=== PATIENT | male | born 1960 | race Caucasian/White ===

== ENCOUNTER → 2020-10-21 07:55 | Outpatient (CLI) | payer BC, SELFPAY ==
[2020-10-21 19:23] LABS: SARS-CoV-2 RNA PCR Negative
== END ==
PROVIDERS: PCP Family Medicine; Visit Provider Internal Medicine Gastroenterology
DX: Z01.812 Encounter for preprocedural laboratory examination (principal); Z20.822 Contact with and (suspected) exposure to COVID-19
CPT/HCPCS: C9803; U0003; U0005

== ENCOUNTER 2020-10-24 00:14 | Day surgery (SDC) | payer BC, SELFPAY ==
[2020-10-12 13:47] VITALS: BMI 33.2
--- NOTE | 2020-10-24 09:08 | WPDANESEPPF ---
Anes - Initial Pre Proc Eval Procedure: Operation Date: 10/24/20 09:30 Proposed Procedures p Screening Colonoscopy - Rob Daigle MD s Esophagogastroduodenoscopy - Rob Daigle MD Date/Time: 10/24/20 09:08 Surgeon: Rob Daigle MD Pre Op Diagnosis: neoplasm screening, dysphagia and gerd Patient Data Age: 60 Gender: M Height: 5 ft 9 in Weight: 102 kg Allergies Allergy/AdvReac Type Severity Reaction Status Date / Time No Known Allergies Allergy Verified 10/12/20 14:00 Home Medications Medication Instructions Recorded Confirmed Type nabumetone 500 mg tablet 500 mg PO BID 04/21/19 10/12/20 History Patient hx anesthesia problems: none Family hx anesthesia problems: none PMFSH Past Medical History Medical History IFG (impaired fasting glucose) Obesity Surgical History Surgical History History of cholecystectomy History of fundoplication History of repair of hiatal hernia History of tonsillectomy Family History Family History Father Family history of diabetes mellitus in first degree relative Family history of coronary artery disease Mother Family history of coronary artery disease Social History Social History Smoking status: Never smoker Second hand tobacco smoke exposure: No Alcohol intake: never Substance use: never Substance use type: does not use Living arrangements: with family Gender identity (if verbalized by the patient): Male Spiritual care concerns: No Anes - Eval Final PreProcedure Day of Procedure 10/24/20 09:08 Patient weight: obese Heart: regular rate and rhythm Lungs: clear to auscultation Airway: Mallampati scale class II Last oral intake: >/= 8 hours ASA classification: II Emergent: no Anesthetic plan: proceed Anesthesia type and monitoring: general GIVS and standard monitoring Informed Consent: The patient's anesthetic plan and its attendant risks and benefits were discussed with the patient/family/POA. Questions were solicited and answers provided to the satisfaction of the patient/family/POA.
[2020-10-24] MEDS: LACTATED RINGERS 1,000 ML 150 ML IV CONT (09:12)
[2020-10-24 09:16] VITALS: BP 141/93; PULSE 77; RESP 18; TEMP 36.4; O2SAT 95; BMI 32.7
--- NOTE | 2020-10-24 09:39 | PM.HPGS ---
History of Present Illness History of Present Illness Consent: Risks, benefits, and alternatives have been discussed and questions answered. Patient agrees to proceed with procedure. Chief complaint: neoplasm screening, dysphagia and gerd Narrative: Asa Tillman is a 60 year old male with a long history of acid reflux disease. He in fact has had anti-reflux surgery about 12 years ago. He denies dysphagia. It has been 10 years since his last colonoscopy [facility] Past Medical History Medical History IFG (impaired fasting glucose) Obesity Surgical History Surgical History History of cholecystectomy History of fundoplication History of repair of hiatal hernia History of tonsillectomy Family History Family History Father Family history of diabetes mellitus in first degree relative Family history of coronary artery disease Mother Family history of coronary artery disease Social History Social History Smoking status: Never smoker Second hand tobacco smoke exposure: No Alcohol intake: never Substance use: never Substance use type: does not use Living arrangements: with family Gender identity (if verbalized by the patient): Male Spiritual care concerns: No Meds Home Medications and Allergies Home Medications Medication Instructions Recorded Confirmed Type nabumetone 500 mg tablet 500 mg PO BID 04/21/19 10/24/20 History Allergies Allergy/AdvReac Type Severity Reaction Status Date / Time No Known Allergies Allergy Verified 10/24/20 09:14 Vital Signs Vital Signs - 24 hr 10/24/20 09:16 Temperature 36.4 C L Pulse Rate 77 Respiratory Rate 18 Blood Pressure 141/93 H Pulse Oximetry 95 Exam Resp: Auscultation: clear to auscultation bilaterally Cardio: Rate: regular rate Rhythm: regular rhythm GI: GI Palp: Yes Soft to palpation and No Tenderness to palpation present (GI) Assessment and Plan Assessment and plan (1) GERD (gastroesophageal reflux disease): Code(s): K21.9 - Gastro-esophageal reflux disease without esophagitis Status: Chronic Assessment and Plan: EGD with possible biopsy or dilatation or cautery. (2) Colon cancer screening: Code(s): Z12.11 - Encounter for screening for malignant neoplasm of colon Status: Acute Assessment and Plan: Colonoscopy with possible biopsy or polypectomy or cautery or injection of substances.
[2020-10-24] MEDS: SIMETHICONE ORAL SUSPENSION 20 MG/0.3 ML 30 ML BOTTLE 0.6 ML IRRIGATION (10:03)
[2020-10-24 10:12] VITALS: BP 96/65; PULSE 77; RESP 19; O2SAT 93
[2020-10-24 10:22] VITALS: BP 110/76; PULSE 77; RESP 19; O2SAT 94
[2020-10-24 10:32] VITALS: BP 126/89; PULSE 69; RESP 21; O2SAT 97
== END 2020-10-24 11:00 | disposition home or self-care (01) ==
PROVIDERS: PCP Family Medicine; Visit Provider Internal Medicine Gastroenterology
PROC: 0DJD8ZZ Inspection of Lower Intestinal Tract, Via Natural or Artificial Opening Endoscopic (ICD-10-PCS; CPT 45378; principal; 2020-10-24 09:30)
PROC: 0DJ08ZZ Inspection of Upper Intestinal Tract, Via Natural or Artificial Opening Endoscopic (ICD-10-PCS; CPT 43235; 2020-10-24 09:30)
DX: Z12.11 Encounter for screening for malignant neoplasm of colon (principal); D12.5 Benign neoplasm of sigmoid colon; K21.00 Gastro-esophageal reflux disease with esophagitis, without bleeding; K25.3 Acute gastric ulcer without hemorrhage or perforation; K29.50 Unspecified chronic gastritis without bleeding; Z90.49 Acquired absence of other specified parts of digestive tract
CPT/HCPCS: 45385; 43239; 87081; 88305; J2001; J2704; J7120

== ENCOUNTER → 2021-03-14 02:44 | Outpatient (CLI) | payer BC, SELFPAY ==
[2021-03-14 16:22] LABS: SARS-CoV-2 RNA PCR Negative
== END ==
PROVIDERS: PCP Family Medicine; Visit Provider Internal Medicine Gastroenterology
DX: Z01.812 Encounter for preprocedural laboratory examination (principal); Z20.822 Contact with and (suspected) exposure to COVID-19
CPT/HCPCS: C9803; U0003; U0005

== ENCOUNTER 2021-03-17 00:25 | Day surgery (SDC) | payer BC, SELFPAY ==
[2021-03-01 13:26] VITALS: BMI 34.2
[2021-03-17] MEDS: LACTATED RINGERS 1,000 ML 150 ML IV CONT (06:51)
[2021-03-17 06:53] VITALS: BP 130/88; PULSE 68; RESP 18; TEMP 36.4; O2SAT 95
--- NOTE | 2021-03-17 07:20 | WPDANESEPPF ---
Anes - Initial Pre Proc Eval Procedure: Operation Date: 03/17/21 08:00 Proposed Procedures p Esophagogastroduodenoscopy - Rob Daigle MD Date/Time: 03/17/21 07:20 Surgeon: Rob Daigle MD Pre Op Diagnosis: dysphagia Patient Data Age: 60 Gender: M Height: 1.75 m Weight: 106.5 kg Last Vital Signs Temp 36.4 C 03/17/21 06:53 Pulse 68 03/17/21 06:53 Resp 18 03/17/21 06:53 BP 130/88 03/17/21 06:53 Pulse Ox 95 03/17/21 06:53 Allergies Allergy/AdvReac Type Severity Reaction Status Date / Time No Known Allergies Allergy Verified 03/17/21 06:51 Home Medications Medication Instructions Recorded Confirmed Type nabumetone 500 mg tablet 500 mg PO BID 04/21/19 03/17/21 History omeprazole 40 mg capsule,delayed 40 mg PO DAILY #30 cap 03/01/21 03/17/21 Rx release Patient hx anesthesia problems: none Family hx anesthesia problems: none Results Review: All pre-operative results and documents have been reviewed as part of the pre-operative evaluation. [facility] Past Medical History Medical History IFG (impaired fasting glucose) Obesity Surgical History Surgical History History of cholecystectomy History of fundoplication History of repair of hiatal hernia History of tonsillectomy Family History Family History Father Family history of diabetes mellitus in first degree relative Family history of coronary artery disease Mother Family history of coronary artery disease Social History Social History Smoking status: Never smoker Second hand tobacco smoke exposure: No Alcohol intake: never Substance use: current Substance use type: does not use Gender identity (if verbalized by the patient): Male Spiritual care concerns: No Anes - Eval Final PreProcedure Day of Procedure 03/17/21 07:20 Patient weight: obese Heart: regular rate and rhythm Lungs: clear to auscultation Airway: Mallampati scale class II Neurological: alert and oriented Last oral intake: >/= 8 hours ASA classification: II Emergent: no Anesthetic plan: proceed Anesthesia type and monitoring: general GIVS and standard monitoring Results Review: All pre-operative results and documents have been reviewed as part of the pre-operative evaluation. Informed Consent: The patient's anesthetic plan and its attendant risks and benefits were discussed with the patient/family/POA. Questions were solicited and answers provided to the satisfaction of the patient/family/POA.
--- NOTE | 2021-03-17 07:24 | PM.HPGS ---
History of Present Illness History of Present Illness Consent: Risks, benefits, and alternatives have been discussed and questions answered. Patient agrees to proceed with procedure. Chief complaint: dysphagia Narrative: Asa Tillman is a 60 year old male Who have chronic acid reflux disease. He in fact had a fundoplication over 20 years ago but over the last few years has had more more issues. Three months ago I performed EGD and found severe erosive esophagitis in the distal few cm along with a mild stricture, which was not dilated because of the marked inflammation and risk of bleeding. He now is feeling much better, having been taking omeprazole 40 mg daily. Occasionally he will have some discomfort or slow transit when swallowing. Repeat EGD today is to confirm healing and if necessary perform dilatation Review of Systems Review of Systems: All systems reviewed & are unremarkable except as noted in HPI and below PMFSH Past Medical History Medical History IFG (impaired fasting glucose) Obesity Surgical History Surgical History History of cholecystectomy History of fundoplication History of repair of hiatal hernia History of tonsillectomy Family History Family History Father Family history of diabetes mellitus in first degree relative Family history of coronary artery disease Mother Family history of coronary artery disease Social History Social History Smoking status: Never smoker Second hand tobacco smoke exposure: No Alcohol intake: never Substance use: current Substance use type: does not use Gender identity (if verbalized by the patient): Male Spiritual care concerns: No Meds Home Medications and Allergies Home Medications Medication Instructions Recorded Confirmed Type nabumetone 500 mg tablet 500 mg PO BID 04/21/19 03/17/21 History omeprazole 40 mg capsule,delayed 40 mg PO DAILY #30 cap 03/01/21 03/17/21 Rx release Allergies Allergy/AdvReac Type Severity Reaction Status Date / Time No Known Allergies Allergy Verified 03/17/21 06:51 Vital Signs Vital Signs - 24 hr 03/17/21 06:53 Temperature 36.4 C Pulse Rate 68 Respiratory Rate 18 Blood Pressure 130/88 Pulse Oximetry 95 Exam Resp: Auscultation: clear to auscultation bilaterally Cardio: Rate: regular rate Rhythm: regular rhythm GI: GI Palp: Yes Soft to palpation and No Tenderness to palpation present (GI) Assessment and Plan Assessment and plan (1) GERD (gastroesophageal reflux disease): Code(s): K21.9 - Gastro-esophageal reflux disease without esophagitis Status: Chronic Assessment and Plan: Colonoscopy with possible biopsy or polypectomy or cautery or injection of substances.
[2021-03-17] MEDS: BENZOCAINE (*SP) 60 ML SPRAY CAN (HURRICAINE) 1 SPRAY MUCOUS MEM (07:57)
[2021-03-17 08:03] VITALS: BP 116/81; PULSE 77; RESP 20; O2SAT 95
[2021-03-17 08:13] VITALS: BP 133/91; PULSE 70; RESP 18; O2SAT 97
[2021-03-17 08:23] VITALS: BP 135/95; PULSE 65; RESP 17; O2SAT 97
== END 2021-03-17 08:28 | disposition home or self-care (01) ==
PROVIDERS: PCP Family Medicine; Visit Provider Internal Medicine Gastroenterology
PROC: 0DJ08ZZ Inspection of Upper Intestinal Tract, Via Natural or Artificial Opening Endoscopic (ICD-10-PCS; CPT 43235; principal; 2021-03-17 08:00)
DX: Z09 Encounter for follow-up examination after completed treatment for conditions other than malignant neoplasm (principal); K21.9 Gastro-esophageal reflux disease without esophagitis; K31.89 Other diseases of stomach and duodenum; R13.10 Dysphagia, unspecified; R73.01 Impaired fasting glucose; E66.9 Obesity, unspecified; Z68.34 Body mass index [BMI] 34.0-34.9, adult
CPT/HCPCS: 43235; J2001; J2704; J7120

== ENCOUNTER 2021-04-26 15:08 | Outpatient (CLI) | payer BC, SELFPAY ==
--- NOTE | ~2021-04-26 | XR_ITS ---
EXAMINATION: XR knee RT 2V DATE: 04/26/2021 15:28 INDICATION: Right knee pain. TECHNIQUE: 2 views of right knee on 3 radiographs were obtained. COMPARISON: None. FINDINGS: Bone alignment is normal. No fracture. There is mild osteoarthritis of medial and lateral c ompartments and moderate osteoarthritis of patellofemoral compartment. No knee joint effusion. IMPRESSION: 1. Moderate right knee osteoarthritis. Reviewed, dictated and finalized at location B. [employer]
== END 2021-04-26 15:09 | disposition home or self-care (01) ==
LOC: ANHIMG 15:13
PROVIDERS: PCP Family Medicine; Visit Provider Family Medicine
DX: M25.561 Pain in right knee (principal); M17.11 Unilateral primary osteoarthritis, right knee
CPT/HCPCS: 73560

== ENCOUNTER → 2021-05-15 14:18 | Outpatient (REF) | payer BC, SELFPAY | LOC: ANHLAB 14:18 | PROVIDERS: PCP Family Medicine; Visit Provider Nurse Practitioner | DX: D18.01 Hemangioma of skin and subcutaneous tissue (principal) | CPT/HCPCS: 88305 ==

== ENCOUNTER 2021-05-19 13:22 | Outpatient (CLI) | payer BC, SELFPAY ==
--- NOTE | ~2021-05-19 | MR_ITS ---
EXAMINATION: MR lumbar spine wo/w con EXAM DATE: 05/19/2021 14:53 INDICATION: M54.16 - Radiculopathy, lumbar region . Bilateral feet tingling. Low back pain. TECHNIQUE: Multi-sequential, multiplanar MR images of the lumbar spine were obtained without contrast . Sagittal T1, T2, T2 fat saturation images. Axial T2 weighted images. Axial T1 weighted sequence. Patient was then injected with 20 mL Multihance intravenous contrast and reimaged. Postcontrast axi al and sagittal T1-weighted fat saturation sequences were obtained. There is no prior study for favio sanchez. FINDINGS: Garfield line Vertebral body and disc heights are well-maintained. The conus medullaris term inates at the L1/2 level and has normal signal intensity and morphology. There are no suspicious mar row signal abnormalities. Paraspinal soft tissue is unremarkable. There are no areas of abnormal enh ancement on the post contrast images. Level by level evaluation: T12-L1: Disc does not extend beyond the endplate margin. Facet arthropathy: None. Neural foraminal stenosis: No stenosis. Central canal stenosis: No stenosis. L1-L2: Disc does not extend beyond the endplate margin. Facet arthropathy: None. Neural foraminal stenosis: No stenosis. Central canal stenosis: No stenosis. L2-L3: Disc does not extend beyond the endplate margin. Facet arthropathy: Minimal. Neural foraminal stenosis: No stenosis. Central canal stenosis: No stenosis. L3-L4: There is a mild diffuse disc bulge. Facet arthropathy: Mild. Neural foraminal stenosis: Mild bilateral. Central canal stenosis: Mild. L4-L5: There is a mild diffuse disc bulge. Facet arthropathy: Mild to moderate. Neural foraminal stenosis: Moderate bilateral. Central canal stenosis: Mild. L5-S1: There is a mild diffuse disc bulge. Facet arthropathy: Mild. Neural foraminal stenosis: Moderate left, mild to moderate right. Central canal stenosis: Minimal. IMPRESSION: Mild to moderate lumbar spondylosis. No acute findings. Reviewed, dictated and finalized at location B. [employer]
[2021-05-19 14:18] LABS: Estimated Glomerular Filt Rate > 60
== END 2021-05-19 13:23 | disposition home or self-care (01) ==
LOC: ANHIMG 13:28
PROVIDERS: PCP Family Medicine; Visit Provider Psychiatry & Neurology Neurology
DX: M47.26 Other spondylosis with radiculopathy, lumbar region (principal)
CPT/HCPCS: 72158; A9577

== ENCOUNTER 2023-05-23 09:13 | Outpatient (CLI) | payer OTHER, SELFPAY ==
[2023-05-23 10:16] LABS: Influenza A QL RT-PCR Positive (Negative); Influenza B QL RT-PCR Negative (Negative); RSV RNA, RT-PCR Negative (Negative); SARS-CoV-2 RNA PCR Positive (Negative)
== END 2023-05-23 09:14 | disposition home or self-care (01) ==
PROVIDERS: PCP Family Medicine; Visit Provider Physician Assistant
DX: R50.9 Fever, unspecified (principal); Z20.822 Contact with and (suspected) exposure to COVID-19
CPT/HCPCS: 87081; 87637

== ENCOUNTER 2024-07-30 17:16 | Outpatient (CLI) | payer OTHER, SELFPAY ==
[2024-07-30 18:06] LABS: Influenza A QL RT-PCR Negative (Negative); Influenza B QL RT-PCR Negative (Negative); RSV RNA, RT-PCR Negative (Negative); SARS-CoV-2 RNA PCR Positive (Negative)
== END 2024-07-30 17:17 | disposition home or self-care (01) ==
LOC: ANHLAB 17:17
PROVIDERS: PCP Family Medicine; Visit Provider Family Medicine
DX: U07.1 COVID-19 (principal)
CPT/HCPCS: 87637